=== PATIENT | male | born 1965 | race Two or more races ===

== ENCOUNTER 2020-02-23 16:12 | Emergency (ER) | payer SELFPAY ==
[~2020-02-23] VITALS: Ht 175.3 cm; Wt 86.0 kg
[2020-02-23] MEDS ORDERED: SODIUM CHLORIDE 0.9% 1,000 ML IV ONE (16:32)
[2020-02-23 16:58] LABS: BASOPHILS % 0.7 % (0.0-2.0); CHLORIDE 113 mEq/L (98-107); EOSINOPHILS % 4.8 % (0.0-5.0); HEMOGLOBIN. 15.3 g/dL (14.0-18.0); INR 0.9; LYMPHOCYTES % 42.9 % (20.0-50.0); MEAN CORPUSCULAR HEMOGLOBIN 30.7 pg (28.0-32.0); MEAN CORPUSCULAR VOLUME 90.5 fL (80.0-94.0); MEAN PLATELET VOLUME 7.4 fl (7.4-10.4); MONOCYTES % 6.9 % (2.0-8.0); NEUTROPHILS % 44.7 % (40.0-76.0); PLATELET 320 x1000/uL (130-400); RED BLOOD CELL COUNT 4.97 mill/uL (4.7-6.1)
[2020-02-23 17:12] LABS: ETHANOL BLOOD 351 mg/dL
[2020-02-23 17:30] LABS: CLARITY URINE CLEAR (CLEAR); COLOR URINE YELLOW (YELLOW); KETONES URINE NEGATIVE (NEGATIVE); LEUKOCYTE ESTERASE URINE NEGATIVE (NEGATIVE); NITRITE URINE NEGATIVE (NEGATIVE); OCCULT BLOOD URINE TRACE (NEGATIVE); PROTEIN URINE NEGATIVE (NEGATIVE); SPECIFIC GRAVITY URINE 1.006 (1.005-1.030); UROBILINOGEN URINE 0.2 E.U./dL (0.2-1.0)
[2020-02-23] MEDS ORDERED: LORAZEPAM 2MG/ML CPJ IM STA (17:41)
[2020-02-23] MEDS ORDERED: HALOPERIDOL LACTATE 5MG/ML VIAL IM STA (17:41)
[2020-02-23 18:13] LABS: *AMPHETAMINES SCREEN URINE PRESUMTIVE POSITIVE (NEGATIVE); *BARBITURATES SCREEN URINE NEGATIVE (NEGATIVE); CANNABINOID URINE SCREEN NEGATIVE (NEGATIVE); OPIATES URINE SCREEN NEGATIVE (NEGATIVE); PHENCYCLIDINE URINE SCREEN NEGATIVE (NEGATIVE)
[2020-02-23 18:14] LABS: *BENZODIAZEPINES SCREEN URINE NEGATIVE (NEGATIVE); *COCAINE SCREEN URINE NEGATIVE (NEGATIVE); METHADONE URINE SCREEN NEGATIVE (NEGATIVE)
[2020-02-24 03:30] VITALS: BP 128/69
== END 2020-02-24 06:34 | disposition home or self-care (01) ==
LOC: ER 16:12
DX: T51.0X1A Toxic effect of ethanol, accidental (unintentional), initial encounter (principal); S00.81XA Abrasion of other part of head, initial encounter; G92 Toxic encephalopathy; Y90.8 Blood alcohol level of 240 mg/100 ml or more; W01.0XXA Fall on same level from slipping, tripping and stumbling without subsequent striking against object, initial encounter; Y93.89 Activity, other specified; Y92.488 Other paved roadways as the place of occurrence of the external cause
CPT/HCPCS: 36415; 70450; 80053; 80305; 80320; 81003; 82962; 85025; 85610; 96372; 99285; J1630; J2060; J7030; G0480